=== PATIENT | male | born 1955 | race American Indian/Alaskan Native ===

== ENCOUNTER 2016-09-28 15:45 | Emergency (ER) | payer SELFPAY | END 2016-09-28 15:46 | disposition left against medical advice (07) | LOC: ED 15:45 | DX: M79.671 Pain in right foot (principal); M79.89 Other specified soft tissue disorders; Z53.21 Procedure and treatment not carried out due to patient leaving prior to being seen by health care provider ==

== ENCOUNTER 2016-09-28 22:29 | Emergency (ER) | payer BC ==
[2016-09-28 23:33] VITALS: BP 146/95
[2016-09-29] MEDS ORDERED: TORADOL IM ONE (03:16)
--- NOTE | 2016-09-29 03:20 | Emergency Department Report ---
ED Extremity Problem HPI - General Chief complaint: Extremity Problem,Nontraumatic Stated complaint: GOUT FLAIR UPS Time Seen by Provider: 09/29/16 03:15 Source: patient Mode of arrival: Ambulatory Limitations: No Limitations - History of Present Illness Initial comments: 60-year-old patient with a PMH of hypertension comes in for complaint of his gout is flaring up. Patient reports that his last flareup was about a year ago. Complains of left great toel pain and swelling. He comes in with a surgical boot on. He does admit to eating more red meats but also states he has stayed away from shellfish. He has tried Tylenol and Aleve without much success. His current medications are atenolol lisinopril and nifedipine.. MD Complaint: extremity pain, extremity swelling, joint paint - Related Data Previous Rx's Medication Instructions Recorded Last Taken Type Colchicine 0.6 mg PO BID #10 capsule 09/29/16 Unknown Rx Indomethacin 50 mg PO Q8H #15 capsule 09/29/16 Unknown Rx Allergies Allergy/AdvReac Type Severity Reaction Status Date / Time No Known Allergies Allergy Unverified 09/29/16 03:16 ED Review of Systems ROS: Stated complaint: GOUT FLAIR UPS Other details as noted in HPI Constitutional: no symptoms reported Musculoskeletal: joint swelling, arthralgia ED Past Medical Hx - Medications Home Medications: Home Medications Medication Instructions Recorded Confirmed Last Taken Type Colchicine 0.6 mg PO BID #10 capsule 09/29/16 Unknown Rx Indomethacin 50 mg PO Q8H #15 capsule 09/29/16 Unknown Rx ED Physical Exam - General Limitations: No Limitations General appearance: alert, in no apparent distress - Eye Eye exam: Present: normal appearance - Expanded Lower Extremity Exam Left Foot/Toe exam: Present: tenderness (metatarsal), swelling (metatarsal), erythema (tarsal) Neuro vascular tendon exam: Present: no vascular compromise. Absent: pulse deficit Gait: Positive: observed and limited by pain - Psychiatric Psychiatric exam: Present: normal affect, normal mood - Skin Skin exam: Present: warm, dry, intact ED Course Vital Signs 09/28/16 23:30 Temperature 98.2 F Pulse Rate 81 Respiratory 20 Rate Blood Pressure 146/95 O2 Sat by Pulse 97 Oximetry ED Medical Decision Making - Medical Decision Making Discussed with patient that we will manage his pain with a shot of Toradol. We will discharge the patient on colchicine and indomethacin. Discussed with . Have patient follow up with primary care doctor with in 3-5 days. Critical care attestation.: If time is entered above; I have spent that time in minutes in the direct care of this critically ill patient, excluding procedure time. ED Disposition Clinical Impression: Podagra Disposition: DISCHARGED TO HOME OR SELFCARE Is pt being admited?: No Does the pt Need Aspirin: No Condition: Stable Instructions: Acute Gouty Arthritis (ED) Additional Instructions: Take medication as prescribed follow up with her primary care doctor within 3-5 days. Prescriptions: Colchicine 0.6 mg PO BID #10 capsule Indomethacin 50 mg PO Q8H #15 capsule Referrals: RIRI HERNANDEZ MD [Primary Care Provider] - 3-5 Days Forms: Work/School Release Form(ED)
== END 2016-09-29 04:50 | disposition home or self-care (01) ==
LOC: ED 22:29
DX: M10.9 Gout, unspecified (principal); I10 Essential (primary) hypertension
CPT/HCPCS: 96372; 99282; J1885

== ENCOUNTER 2016-10-17 16:14 | Outpatient (CLI) | payer BC | END 2016-10-17 16:15 | disposition home or self-care (01) | LOC: LAB 16:14 → LABHHL 16:14 → LAB 16:15 | PROVIDERS: ATTEND Internal Medicine Gastroenterology | DX: Z12.11 Encounter for screening for malignant neoplasm of colon (principal) | CPT/HCPCS: 88305 ==

== ENCOUNTER 2017-01-30 20:53 | Emergency (ER) | payer BC ==
[2017-01-31 03:42] VITALS: BP 176/97
--- NOTE | 2017-01-31 04:50 | Emergency Department Report ---
Upper Extremity - HPI Chief Complaint: Extremity Injury, Upper Stated Complaint: RT HAND SWELLING W/PAIN Time Seen by Provider: 01/31/17 04:34 Upper Extremity: Right Hand (pain in right hand with swelling and patient reports got flareup after eating in the food that he is not supposed to be eating over several days.) Occurred When: 1 Day Mechanism: Other (flareup gout) Severity: severe (9 out of 10) Symptoms: Yes Pain with Movement, Yes Swelling, No Deformity, No Limited Range of Movement, No Numbness, No Weakness, No Bruising/Ecchymosis, No Laceration or Abrasion Other History: Parker he reports that he has a flare up of gout 2 days and is very painful he said last time he had this was in September 2016 and he was treated with and indomethacin which worked for him but he said he does not have anymore. Patient psychosis outside [facility] for her memory care visit with Dr. Harris. He says prior to the flare up he's been eating meats and fish that he is not supposed to be eating. She reports that he's had similar severe flareups in same hand and other areas. He said he tried to take over-the -counter medication but it's not helping. Denies any numbness or tingling to extremities. Denies any injury. Denies any fever or chills. Pain is not adequate and achy. Denies any chest pain or shortness of breath. Patient has history of hypertension and gout. He is currently taking lisinopril and Norvasc which he said he takes every day. ED Review of Systems ROS: Stated complaint: RT HAND SWELLING W/PAIN Other details as noted in HPI Comment: All other systems reviewed and negative Constitutional: denies: chills, fever Respiratory: no symptoms reported Cardiovascular: denies: chest pain, palpitations, edema, syncope Gastrointestinal: denies: nausea, vomiting Musculoskeletal: joint swelling, arthralgia. denies: back pain, myalgia Skin: denies: rash Neurological: denies: headache, weakness, numbness, paresthesias, confusion ED Past Medical Hx - Past Medical History Previous Medical History?: Yes Hx Hypertension: Yes Additional medical history: gout - Surgical History Past Surgical History?: No - Family History Family history: hypertension - Social History Smoking Status: Never Smoker Substance Use Type: None - Medications Home Medications: Home Medications Medication Instructions Recorded Confirmed Last Taken Type Colchicine 0.6 mg PO BID #10 capsule 01/31/17 Unknown Rx Indomethacin 50 mg PO Q8H #15 capsule 01/31/17 Unknown Rx Lisinopril [Zestril] 40 mg PO DAILY 01/31/17 01/31/17 1 Day Ago History amLODIPine [Norvasc] 10 mg PO DAILY 01/31/17 01/31/17 1 Day Ago History Upper Extremity Exam - Exam General: Vital signs noted. No distress. Alert and acting appropriately. This is a 61-year-old male well-nourished well-developed in no acute distress. Head and Torso: No HEENT Abnormality (normal exam), No Neck Tenderness (no C- spine tenderness, supple and full range of motion), No Chest/Lungs Abnormality ( lung sounds clear to auscultate bilaterally, no rhonchi wheezes or rales. Normal work of breathing), No Abdominal Tenderness (soft, nontender to palpate and normal bowel sounds in all quadrants), No Back Tenderness (full range of motion and normal exam) Shoulder Exam: Yes Normal Range of Motion in Shoulder, No Shoulder Tenderness, No Clavicle Tenderness, No Shoulder Deformity, No AC Joint Tenderness Arm Exam: No Arm/Humerus Tenderness, No Arm Deformity Elbow: Yes Normal Range of Motion in Elbow, No Elbow Tenderness, No Elbow Deformity Forearm: No Forearm Tenderness, No Forearm Deformity, No Pain with Pronation, No Pain with Supination Wrist: Yes Wrist Tenderness, Yes Normal ROM in Wrist, No Wrist Deformity, No Snuffbox Tenderness, No Pain with Axial Thumb Compression Hand: Yes Hand Tenderness (Dorsal aspect of Rt hand. Tender to palpate with swelling and mild erythema.), Yes Normal ROM in Digit(s), No Hand Deformity, No Digit Tenderness, No Digit(s) Deformity, No Tendon Dysfunction CMS Exam: Yes Normal Distal Pulses, Yes Normal Capillary Refill, Yes Normal Distal Sensation, No Broken Skin ED Course Vital Signs 01/30/17 01/30/17 01/31/17 21:22 21:37 03:41 Temperature 98.5 F 98.5 F Pulse Rate 74 74 74 Respiratory 18 18 20 Rate Blood Pressure 163/89 Blood Pressure 163/89 176/97 [Right] O2 Sat by Pulse 100 100 98 Oximetry - Reevaluation(s) Reevaluation #1: 01/31/17 06:20 Patient given Percocet 5/325 mg 2 tablets by mouth, Toradol 60 mg IM and Decadron 10 mg IM and voice relief of pain. 01/31/17 06:21 ED Medical Decision Making - Radiology Data Radiology results: report reviewed X-ray of right hand reveal soft tissue swelling without any bony abnormality. - Medical Decision Making ED course: She presented to the emergency room with right hand swelling, pain and reports that he has a gout flare up. X-ray results reveal no bony abnormality with soft tissue swelling. Examination of right hand positive for acute gout flare up. Patient has been eating in red meat and fish 2 days prior to flare up. Discussed local appearing diet with patient and he said he knows but every time he eats this he has a flare up. Patient has a primary care physician at this outside [facility] and I told him that he will need to follow-up with him to call to schedule an appointment in 2 days. He was treated back in September with indomethacin and Colcrys she says works well for him. I discussed with patient that his x-ray of his hand did not show any broken bones. Pt discharged home with his friend with prescription for Colcrys and indomethacin. Critical care attestation.: If time is entered above; I have spent that time in minutes in the direct care of this critically ill patient, excluding procedure time. ED Disposition Clinical Impression: Arthralgia of right hand Acute gout of right hand Qualifiers: Gout etiology: unspecified cause Qualified Code(s): M10.9 - Gout, unspecified Disposition: DISCHARGED TO HOME OR SELFCARE Is pt being admited?: No Does the pt Need Aspirin: No Condition: Stable Instructions: Acute Gouty Arthritis (ED), Arthralgia (ED), Low Purine Diet (ED) Additional Instructions: avoid food that is high in purine. Follow-up with your primary care physician at outside Medical Center. Take medication as prescribed. Prescriptions: Colchicine 0.6 mg PO BID #10 capsule Indomethacin 50 mg PO Q8H #15 capsule Referrals: PRIMARY MD MADY [Primary Care Provider] - 02/02/17 Forms: Accompanied Note, Work/School Release Form(ED)
[2017-01-31] MEDS ORDERED: PERCOCET 5/325 PO ONE (04:51)
[2017-01-31] MEDS ORDERED: DECADRON IM STA (04:51)
[2017-01-31] MEDS ORDERED: TORADOL IM ONE (04:51)
--- NOTE | 2017-01-31 05:24 | XRay Report ---
FINAL REPORT EXAM: XR HAND 3 RT HISTORY: rt hand swelling, redness and pain TECHNIQUE: Three views of the right hand. PRIORS: None. FINDINGS: There is no evidence of acute fracture. There is no evidence of joint dislocation. There is no focal osseous lesions seen. There is diffuse soft tissue swelling. IMPRESSION: There is no acute bony abnormality identified. Soft tissue swelling noted.
== END 2017-01-31 06:59 | disposition home or self-care (01) ==
LOC: ED 20:53
DX: M10.9 Gout, unspecified (principal); M79.641 Pain in right hand; I10 Essential (primary) hypertension
CPT/HCPCS: 73130; 96372; 99283; J1100; J1885

== ENCOUNTER 2017-12-18 14:04 | Emergency (ER) | payer BC ==
[2017-12-18 14:09] VITALS: BP 121/83
[2017-12-18] MEDS ORDERED: PERCOCET 5/325 PO ONE (16:45)
[2017-12-18] MEDS ORDERED: COLCRYS PO ONE (16:45)
[2017-12-18] MEDS ORDERED: TORADOL IM ONE (16:45)
--- NOTE | 2017-12-18 16:49 | Emergency Department Report ---
ED Extremity Problem HPI - General Chief complaint: Extremity Injury, Lower Stated complaint: GOUT Time Seen by Provider: 12/18/17 16:44 Source: patient Mode of arrival: Ambulatory Limitations: No Limitations - History of Present Illness Initial comments: 62-year-old male with a past medical history hypertension, gout, and obesity presents complaining of left knee and left foot pain secondary to gout for the past 4 days. Pain is constant, throbbing, rated 10/10 intensity. Worse with palpation, movement, and ambulation. Similar episodes in the past secondary to gout. Pain is at the left knee and left great toe. No trauma reported. No fever reported. - Related Data Home Medications Medication Instructions Recorded Confirmed Last Taken Lisinopril [Zestril] 40 mg PO DAILY 01/31/17 01/31/17 1 Day Ago ~01/30/17 amLODIPine [Norvasc] 10 mg PO DAILY 01/31/17 01/31/17 1 Day Ago ~01/30/17 Previous Rx's Medication Instructions Recorded Last Taken Type Colchicine 0.6 mg PO BID #10 capsule 01/31/17 Unknown Rx Colchicine [Mitigare] 0.6 mg PO BID #2 capsule 12/18/17 Unknown Rx Indomethacin 50 mg PO Q8H #15 capsule 12/18/17 Unknown Rx Oxycodone HCl/Acetaminophen 1 each PO Q4-6H PRN #20 tablet 12/18/17 Unknown Rx [Percocet 7.5/325 mg] Allergies Allergy/AdvReac Type Severity Reaction Status Date / Time No Known Allergies Allergy Unverified 09/29/16 03:16 ED Review of Systems ROS: Stated complaint: GOUT Other details as noted in HPI Comment: All other systems reviewed and negative ED Past Medical Hx - Past Medical History Hx Hypertension: Yes Additional medical history: gout - Social History Smoking Status: Never Smoker Substance Use Type: None - Medications Home Medications: Home Medications Medication Instructions Recorded Confirmed Last Taken Type Colchicine 0.6 mg PO BID #10 capsule 01/31/17 Unknown Rx Lisinopril [Zestril] 40 mg PO DAILY 01/31/17 01/31/17 1 Day Ago History ~01/30/17 amLODIPine [Norvasc] 10 mg PO DAILY 01/31/17 01/31/17 1 Day Ago History ~01/30/17 Colchicine [Mitigare] 0.6 mg PO BID #2 capsule 12/18/17 Unknown Rx Indomethacin 50 mg PO Q8H #15 capsule 12/18/17 Unknown Rx Oxycodone HCl/Acetaminophen 1 each PO Q4-6H PRN #20 tablet 12/18/17 Unknown Rx [Percocet 7.5/325 mg] ED Physical Exam - General Limitations: No Limitations - Other Other exam information: General: No limitations, patient is alert in no acute distress Head exam: Atraumatic, normocephalic Eyes exam: Normal appearance, pupils equal reactive to light, extraocular movements intact ENT: Moist mucous membrane, normal oropharynx Neck exam: Normal inspection, full range of motion, no meningismus nontender Respiratory exam: Clear to auscultation bilateral, no wheezes, rales, crackles Cardiovascular: Normal rate and rhythm, normal heart sounds Abdomen: Soft, nondistended, and nontender, with normal bowel sounds, no rebound, or guarding Extremity: Full range of motion, left knee pain without redness. Tender to palpation. Left great toe erythema at the MTP joint with tendernessand warmth Back: Normal Inspection, full range of motion, no tenderness Neurologic: Alert, oriented x3, cranial nerves intact, no motor or sensory deficit Psychiatric: normal affect, normal mood Skin: Warm, dry, intact ED Course Vital Signs 12/18/17 14:07 Temperature 97.5 F L Pulse Rate 71 Respiratory 18 Rate Blood Pressure 121/83 O2 Sat by Pulse 99 Oximetry ED Medical Decision Making - Medical Decision Making Patient had acute exacerbation of gout arthritis. Given colchicine, Toradol, and Percocet in the ED We will be prescribing him medicines for treatment Patient are using crutches and has a cast shoe to his left foot secondary to swelling and pain - Differential Diagnosis gout, arthritis, septic joint Critical Care Time: No Critical care attestation.: If time is entered above; I have spent that time in minutes in the direct care of this critically ill patient, excluding procedure time. ED Disposition Clinical Impression: Gout attack Qualifiers: Gout site: multiple sites Encounter type: initial encounter Disposition: TO HOME OR SELFCARE Is pt being admited?: No Does the pt Need Aspirin: No Condition: Stable Instructions: Acute Gouty Arthritis (ED) Additional Instructions: Take medications as prescribed. Follow-up with your doctor for prescription for gout suppressive medication and follow up evaluation regarding this attack. Prescriptions: Colchicine [Mitigare] 0.6 mg PO BID #2 capsule Indomethacin 50 mg PO Q8H #15 capsule Oxycodone HCl/Acetaminophen [Percocet 7.5/325 mg] 1 each PO Q4-6H PRN #20 tablet PRN Reason: Pain Referrals: PRIMARY CARE, [Primary Care Provider] - 3-5 Days NICKY LUIS MD [Staff Physician] - 3-5 Days (Primary care doctor ) Time of Disposition: 16:54
== END 2017-12-18 17:05 | disposition home or self-care (01) ==
LOC: ED 14:04
DX: M10.9 Gout, unspecified (principal); I10 Essential (primary) hypertension
CPT/HCPCS: 96372; 99282; J1885

== ENCOUNTER 2018-11-24 16:55 | Emergency (ER) | payer BC ==
[2018-11-24 17:01] VITALS: BP 141/69
--- NOTE | 2018-11-24 17:07 | Emergency Department Report ---
Chief Complaint: Extremity Injury, Upper Stated Complaint: GOUT Time Seen by Provider: 11/24/18 17:03 - HPI History of Present Illness: pt states he presents for gout flare right wrist swelling and pain hx of gout no fever no injury states he take medications for gout VSS swelling and warmth to right arm good radial pulse - Exam Vital Signs: Vital Signs 11/24/18 17:00 Temperature 98.7 F Pulse Rate 61 Respiratory 20 Rate Blood Pressure 141/69 [Left] O2 Sat by Pulse 98 Oximetry MSE screening note: Focused history and physical exam performed. ED Disposition for MSE Condition: Stable
[2018-11-24] MEDS ORDERED: DECADRON IM ONE (19:26)
[2018-11-24] MEDS ORDERED: TORADOL IM ONE (19:26)
--- NOTE | 2018-11-24 20:22 | Emergency Department Report ---
ED Upper Extremity Inj HPI - General Chief Complaint: Extremity Injury, Upper Stated Complaint: GOUT Time Seen by Provider: 11/24/18 17:03 Source: patient Mode of arrival: Ambulatory Limitations: No Limitations - History of Present Illness Initial Comments: patient is a 62 -year-old -Cymraes history presents for gout flare right wrist for past 3 days pain described as 5/10 aching exacerbated by movement there is no numbness no tingling now weakness no paralysis pain exacerbated by movement pain relieved by nothting. Complaint: Injury to:: left, wrist (wrists) Onset/Timin -: days(s) Other Extremity Injury: Wrist: Right Other Injuries: none Place: home Severity scale (0 -10): 5 Improves With: none Worsens With: movement of extremity - Related Data Home Medications Medication Instructions Recorded Confirmed Last Taken Lisinopril [Zestril] 40 mg PO DAILY 01/31/17 01/31/17 1 Day Ago ~01/30/17 amLODIPine [Norvasc] 10 mg PO DAILY 01/31/17 01/31/17 1 Day Ago ~01/30/17 Previous Rx's Medication Instructions Recorded Last Taken Type Colchicine 0.6 mg PO BID #10 capsule 01/31/17 Unknown Rx Colchicine [Mitigare] 0.6 mg PO BID #2 capsule 12/18/17 Unknown Rx Indomethacin 50 mg PO Q8H #15 capsule 12/18/17 Unknown Rx Oxycodone HCl/Acetaminophen 1 each PO Q4-6H PRN #20 tablet 12/18/17 Unknown Rx [Percocet 7.5/325 mg] Indomethacin 50 mg PO Q8H PRN 10 Days #30 11/24/18 Unknown Rx capsule predniSONE [Deltasone] 40 mg PO QDAY 5 Days #10 tab 11/24/18 Unknown Rx Allergies Allergy/AdvReac Type Severity Reaction Status Date / Time No Known Allergies Allergy Verified 11/24/18 16:56 ED Review of Systems ROS: Stated complaint: GOUT Other details as noted in HPI Constitutional: denies: chills, fever Eyes: denies: eye pain, eye discharge, vision change ENT: denies: ear pain, throat pain Respiratory: denies: cough, shortness of breath, wheezing Cardiovascular: denies: chest pain, palpitations Endocrine: no symptoms reported Gastrointestinal: denies: abdominal pain, nausea, diarrhea Genitourinary: denies: urgency, dysuria Musculoskeletal: denies: back pain, joint swelling, arthralgia Skin: denies: rash, lesions Neurological: denies: headache, weakness, paresthesias Psychiatric: denies: anxiety, depression Hematological/Lymphatic: denies: easy bleeding, easy bruising ED Past Medical Hx - Past Medical History Hx Hypertension: Yes Additional medical history: gout - Surgical History Past Surgical History?: No - Social History Smoking Status: Never Smoker Substance Use Type: Prescribed - Medications Home Medications: Home Medications Medication Instructions Recorded Confirmed Last Taken Type Colchicine 0.6 mg PO BID #10 capsule 01/31/17 Unknown Rx Lisinopril [Zestril] 40 mg PO DAILY 01/31/17 01/31/17 1 Day Ago History ~01/30/17 amLODIPine [Norvasc] 10 mg PO DAILY 01/31/17 01/31/17 1 Day Ago History ~01/30/17 Colchicine [Mitigare] 0.6 mg PO BID #2 capsule 12/18/17 Unknown Rx Indomethacin 50 mg PO Q8H #15 capsule 12/18/17 Unknown Rx Oxycodone HCl/Acetaminophen 1 each PO Q4-6H PRN #20 tablet 12/18/17 Unknown Rx [Percocet 7.5/325 mg] Indomethacin 50 mg PO Q8H PRN 10 Days #30 11/24/18 Unknown Rx capsule predniSONE [Deltasone] 40 mg PO QDAY 5 Days #10 tab 11/24/18 Unknown Rx ED Physical Exam - General Limitations: No Limitations General appearance: alert, in no apparent distress - Head Head exam: Present: atraumatic, normocephalic - Eye Eye exam: Present: normal appearance, PERRL, EOMI Pupils: Present: normal accommodation - ENT ENT exam: Present: mucous membranes moist - Neck Neck exam: Present: normal inspection, full ROM - Respiratory Respiratory exam: Present: normal lung sounds bilaterally. Absent: respiratory distress - Cardiovascular Cardiovascular Exam: Present: regular rate, normal rhythm. Absent: systolic murmur, diastolic murmur, rubs, gallop - GI/Abdominal GI/Abdominal exam: Present: soft, normal bowel sounds - Rectal Rectal exam: Present: deferred - exam: Present: normal inspection - Extremities Exam Extremities exam: Present: normal inspection, tenderness (right wrist mild swelling no deformity no erythema ), normal capillary refill, joint swelling. Absent: pedal edema, calf tenderness - Expanded Upper Extremity Exam Right Hand Wrist exam: Present: full ROM, swelling. Absent: tenderness, abrasion, laceration, ecchymosis, deformity, crepidus, dislocation, erythema, amputation, nail avulsion, subungual hematoma Neuro motor exam: Present: wrist extension intact, thumb opposition intact, thumb IP flexion intact, thumb adduction intact, fingers 2-5 abduction intact Neurosensory exam: Present: 2-point discrimination, radial nerve intact, ulnar nerve intact, median nerve intact Vascular: Present: normal capillary refill, radial pulse, brachial pulse, ulnar pulse. Absent: vascular compromise, pulse deficit radial art, pulse deficit ulnar art, pulse deficit brachial art - Back Exam Back exam: Present: normal inspection, full ROM, muscle spasm. Absent: tenderness, CVA tenderness (R), CVA tenderness (L), paraspinal tenderness, vertebral tenderness, rash noted - Neurological Exam Neurological exam: Present: alert, oriented X3, CN II-XII intact, normal gait, reflexes normal - Psychiatric Psychiatric exam: Present: normal affect, normal mood - Skin Skin exam: Present: warm, dry, intact, normal color. Absent: rash ED Course Vital Signs 11/24/18 11/24/18 11/24/18 17:00 17:03 19:46 Temperature 98.7 F 98.7 F Pulse Rate 61 61 Respiratory 20 20 18 Rate Blood Pressure 141/69 Blood Pressure 141/69 [Left] O2 Sat by Pulse 98 98 Oximetry ED Medical Decision Making - Medical Decision Making pain improved with medications given in ed plan indomethacin, prednisone, follow up with pcp in 2-3 days hold allopurinol while taking inodmethacine pt verbalized agreement and understanding of discharge plan. Critical care attestation.: If time is entered above; I have spent that time in minutes in the direct care of this critically ill patient, excluding procedure time. ED Disposition Clinical Impression: Exacerbation of gout Disposition: TO HOME OR SELFCARE Is pt being admited?: No Does the pt Need Aspirin: No Condition: Stable Instructions: Acute Gouty Arthritis (ED) Prescriptions: predniSONE [Deltasone] 40 mg PO QDAY 5 Days #10 tab Indomethacin 50 mg PO Q8H PRN 10 Days #30 capsule PRN Reason: pain Referrals: PRIMARY CARE, [Primary Care Provider] - 3-5 Days PETEY SWIFT MD [Referring] - 3-5 Days Forms: Work/School Release Form(ED) Time of Disposition: 20:28
== END 2018-11-24 20:43 | disposition home or self-care (01) ==
LOC: ED 16:55
DX: M10.9 Gout, unspecified (principal)
CPT/HCPCS: 36415; 84550; 96372; 99283; J1100; J1885

== ENCOUNTER 2020-09-06 16:18 | Emergency (ER) | payer BC, MEDICARE ==
[2020-09-06] MEDS ORDERED: dexAMETHasone 20 MG/5 ML VIAL IM ONE (17:44)
[2020-09-06] MEDS ORDERED: COLCHICINE 0.6 MG CAP PO ONE (17:44)
[2020-09-06] MEDS ORDERED: KETOROLAC 30 MG/1 ML INJ IM ONE (17:44)
--- NOTE | 2020-09-06 17:46 | Emergency Department Report ---
ED Extremity Problem HPI - General Chief complaint: Pain General Stated complaint: RT HAND SWOLLEN Time Seen by Provider: 09/06/20 17:42 Source: patient Mode of arrival: Ambulatory Limitations: No Limitations - History of Present Illness Initial comments: 64-year-old -[place]ux[place]bour[place] male presents to the emergency room for right hand swelling. Patient states that his gout flaring up. Patient states is been going on for about 3 days. Patient does admit to eating something that he should not have. Patient states that the pain is unbearable and he has been sleeping with it up to try to get any relief. MD Complaint: extremity pain, extremity swelling, joint swelling, joint paint Onset/Timin -: days(s) Location: right History of Same: Yes -: Yes arthralgia Severity scale (0 -10): 10 Quality: stabbing, aching, sharp Consistency: constant Improves with: nothing Worsens with: palpation Associated Symptoms: denies: denies other symptoms, fever - Related Data Home Medications Medication Instructions Recorded Confirmed Last Taken Lisinopril [Zestril] 40 mg PO DAILY 01/31/17 01/31/17 1 Day Ago ~01/30/17 amLODIPine [Norvasc] 10 mg PO DAILY 01/31/17 01/31/17 1 Day Ago ~01/30/17 Previous Rx's Medication Instructions Recorded Last Taken Type Colchicine [Mitigare] 0.6 mg PO BID #2 capsule 12/18/17 Unknown Rx Indomethacin 50 mg PO Q8H #15 capsule 12/18/17 Unknown Rx Oxycodone HCl/Acetaminophen 1 each PO Q4-6H PRN #20 tablet 12/18/17 Unknown Rx [Percocet 7.5/325 mg] Colchicine 0.6 mg PO BID #10 capsule 09/06/20 Unknown Rx Indomethacin 50 mg PO Q8H PRN 10 Days #30 09/06/20 Unknown Rx capsule predniSONE [Deltasone] 40 mg PO QDAY 5 Days #10 tab 09/06/20 Unknown Rx Allergies Allergy/AdvReac Type Severity Reaction Status Date / Time No Known Allergies Allergy Verified 11/24/18 16:56 ED Review of Systems ROS: Stated complaint: RT HAND SWOLLEN Other details as noted in HPI Comment: All other systems reviewed and negative ED Past Medical Hx - Past Medical History Hx Hypertension: Yes Additional medical history: gout - Social History Smoking Status: Never Smoker Substance Use Type: Prescribed - Medications Home Medications: Home Medications Medication Instructions Recorded Confirmed Last Taken Type Lisinopril [Zestril] 40 mg PO DAILY 01/31/17 01/31/17 1 Day Ago History ~01/30/17 amLODIPine [Norvasc] 10 mg PO DAILY 01/31/17 01/31/17 1 Day Ago History ~01/30/17 Colchicine [Mitigare] 0.6 mg PO BID #2 capsule 12/18/17 Unknown Rx Indomethacin 50 mg PO Q8H #15 capsule 12/18/17 Unknown Rx Oxycodone HCl/Acetaminophen 1 each PO Q4-6H PRN #20 tablet 12/18/17 Unknown Rx [Percocet 7.5/325 mg] Colchicine 0.6 mg PO BID #10 capsule 09/06/20 Unknown Rx Indomethacin 50 mg PO Q8H PRN 10 Days #30 09/06/20 Unknown Rx capsule predniSONE [Deltasone] 40 mg PO QDAY 5 Days #10 tab 09/06/20 Unknown Rx ED Physical Exam - General Limitations: No Limitations General appearance: alert, in distress - Head Head exam: Present: atraumatic, normocephalic - Eye Eye exam: Present: normal appearance - ENT ENT exam: Present: normal exam - Neck Neck exam: Present: normal inspection. Absent: full ROM - Respiratory Respiratory exam: Absent: accessory muscle use - Expanded Upper Extremity Exam Right Shoulder Exam: Present: normal inspection Upper Arm exam: Present: normal inspection Elbow exam: Present: normal inspection Forearm Wrist exam: Present: normal inspection Hand Wrist exam: Present: full ROM, tenderness, swelling, erythema Vascular: Present: normal capillary refill - Back Exam Back exam: Present: normal inspection - Neurological Exam Neurological exam: Present: alert, oriented X3, normal gait - Psychiatric Psychiatric exam: Present: normal affect, normal mood ED Course Vital Signs 09/06/20 16:55 Temperature 97.6 F Pulse Rate 76 Respiratory 20 Rate Blood Pressure 150/74 O2 Sat by Pulse 100 Oximetry ED Medical Decision Making - Medical Decision Making 64-year-old -[place]ux[place] male presents to the emergency room for right hand swelling. Patient states that his gout flaring up. Patient states is been going on for about 3 days. Patient does admit to eating something that he should not have. Patient states that the pain is unbearable and he has been sleeping with it up to try to get any relief. Toradol 30 mg IM, colchicine 1.2 mg and dexamethasone 10 mg IM. Critical care attestation.: If time is entered above; I have spent that time in minutes in the direct care of this critically ill patient, excluding procedure time. ED Disposition Clinical Impression: Gout attack Disposition: TO HOME OR SELFCARE Is pt being admited?: No Does the pt Need Aspirin: No Condition: Stable Additional Instructions: Please take medications as prescribed. Please avoid eating foods that exacerbate your gout. Increase your water intake. Prescriptions: Colchicine 0.6 mg PO BID #10 capsule predniSONE [Deltasone] 40 mg PO QDAY 5 Days #10 tab Indomethacin 50 mg PO Q8H PRN 10 Days #30 capsule PRN Reason: pain Referrals: [facility] [Provider Group] - 3-5 Days
[2020-09-06 20:26] VITALS: BP 147/72
== END 2020-09-06 20:25 | disposition home or self-care (01) ==
LOC: ED 16:18
DX: M10.9 Gout, unspecified (principal); I10 Essential (primary) hypertension; Z79.899 Other long term (current) drug therapy
CPT/HCPCS: 96372; 99282; J1100; J1885

== ENCOUNTER 2020-12-09 13:53 | Emergency (ER) | payer BC, MEDICARE ==
[2020-12-09 14:32] VITALS: BP 164/76
[2020-12-09] MEDS ORDERED: KETOROLAC 60 MG/2 ML INJ IM ONE (16:28)
[2020-12-09] MEDS ORDERED: dexAMETHasone 20 MG/5 ML VIAL IM ONE (16:28)
--- NOTE | 2020-12-09 17:13 | Emergency Department Report ---
ED General Adult HPI - General Chief complaint: Extremity Problem,Nontraumatic Stated complaint: GOUT Time Seen by Provider: 12/09/20 15:09 Source: patient Mode of arrival: Ambulatory Limitations: No Limitations - History of Present Illness Initial comments: 65-year-old -[place]ian male patient presents with complaints of gout flare to right wrist x 1 day. Patient states history of gout flares to the right wrist and that this feels like his past episodes. He states he is currently on allopurinol. He denies any fever/chills/sweats or injuries to his right wrist. He rates his current pain as a 9/10 in severity. -: Sudden - Related Data Home Medications Medication Instructions Recorded Confirmed Last Taken Lisinopril [Zestril] 40 mg PO DAILY 01/31/17 01/31/17 1 Day Ago ~01/30/17 amLODIPine [Norvasc] 10 mg PO DAILY 01/31/17 01/31/17 1 Day Ago ~01/30/17 Previous Rx's Medication Instructions Recorded Last Taken Type Colchicine [Mitigare] 0.6 mg PO BID #2 capsule 12/18/17 Unknown Rx Oxycodone HCl/Acetaminophen 1 each PO Q4-6H PRN #20 tablet 12/18/17 Unknown Rx [Percocet 7.5/325 mg] Colchicine 0.6 mg PO BID #10 capsule 09/06/20 Unknown Rx Indomethacin 50 mg PO Q8H PRN 10 Days #30 09/06/20 Unknown Rx capsule predniSONE [Deltasone] 40 mg PO QDAY 5 Days #10 tab 09/06/20 Unknown Rx Indomethacin 50 mg PO Q8H PRN #15 capsule 12/09/20 Unknown Rx Prednisone [predniSONE 10 mg 10 mg PO .TAPER #1 tab.ds.pk 12/09/20 Unknown Rx (6-Day Pack, 21 Tabs)] Allergies Allergy/AdvReac Type Severity Reaction Status Date / Time No Known Allergies Allergy Verified 11/24/18 16:56 ED Review of Systems ROS: Stated complaint: GOUT Other details as noted in HPI Constitutional: denies: chills, fever, malaise Cardiovascular: denies: chest pain Musculoskeletal: joint swelling, arthralgia Neurological: denies: numbness, paresthesias ED Past Medical Hx - Past Medical History Previous Medical History?: Yes Hx Hypertension: Yes Additional medical history: gout - Surgical History Past Surgical History?: No - Social History Smoking Status: Never Smoker Substance Use Type: Prescribed - Medications Home Medications: Home Medications Medication Instructions Recorded Confirmed Last Taken Type Lisinopril [Zestril] 40 mg PO DAILY 01/31/17 01/31/17 1 Day Ago History ~01/30/17 amLODIPine [Norvasc] 10 mg PO DAILY 01/31/17 01/31/17 1 Day Ago History ~01/30/17 Colchicine [Mitigare] 0.6 mg PO BID #2 capsule 12/18/17 Unknown Rx Oxycodone HCl/Acetaminophen 1 each PO Q4-6H PRN #20 tablet 12/18/17 Unknown Rx [Percocet 7.5/325 mg] Colchicine 0.6 mg PO BID #10 capsule 09/06/20 Unknown Rx Indomethacin 50 mg PO Q8H PRN 10 Days #30 09/06/20 Unknown Rx capsule predniSONE [Deltasone] 40 mg PO QDAY 5 Days #10 tab 09/06/20 Unknown Rx Indomethacin 50 mg PO Q8H PRN #15 capsule 12/09/20 Unknown Rx Prednisone [predniSONE 10 mg 10 mg PO .TAPER #1 tab.ds.pk 12/09/20 Unknown Rx (6-Day Pack, 21 Tabs)] ED Physical Exam - General Limitations: No Limitations General appearance: alert, in no apparent distress, obese - Head Head exam: Present: atraumatic, normocephalic - Eye Eye exam: Present: normal appearance. Absent: scleral icterus - Neck Neck exam: Present: normal inspection - Respiratory Respiratory exam: Absent: respiratory distress - Cardiovascular Cardiovascular Exam: Present: regular rate - Expanded Upper Extremity Exam Right Forearm Wrist exam: Present: full ROM (Limited secondary to pain and swelling), tenderness, swelling. Absent: ecchymosis, deformity, erythema Hand Wrist exam: Present: full ROM. Absent: tenderness, swelling Vascular: Present: normal capillary refill. Absent: vascular compromise, pulse deficit radial art, pulse deficit ulnar art - Neurological Exam Neurological exam: Present: alert, oriented X3, normal gait - Psychiatric Psychiatric exam: Present: normal affect, normal mood - Skin Skin exam: Present: warm, dry, intact, normal color. Absent: rash ED Course Vital Signs 12/09/20 14:28 Temperature 98.0 F Pulse Rate 66 Respiratory 18 Rate Blood Pressure 164/76 [Right] O2 Sat by Pulse 98 Oximetry ED Medical Decision Making - Medical Decision Making 65-year-old -[place] male patient presents with complaints of gout flare to right wrist x 1 day. Patient states history of gout flares to the right wrist and that this feels like his past episodes. He states he is currently on allopurinol. He denies any fever/chills/sweats or injuries to his right wrist. He rates his current pain as a 9/10 in severity. Patient denies any kidney disease or diabetes. Patient given Toradol and Decadron and will discharge home with indomethacin and prednisone. Recommend follow-up with primary care in 3 to 5 days. His vitals are within normal limi ts, he is well-appearing, he is stable for discharge home. Strict return precautions were discussed in detail with patient who verbalized understanding. Critical care attestation.: If time is entered above; I have spent that time in minutes in the direct care of this critically ill patient, excluding procedure time. ED Disposition Clinical Impression: Gout flare Qualifiers: Gout site: wrist Gout etiology: idiopathic Laterality: right Qualified Code(s): M10.031 - Idiopathic gout, right wrist Disposition: DC-01 TO HOME OR SELFCARE Is pt being admited?: No Condition: Stable Instructions: Low-Purine Eating Plan Prescriptions: Indomethacin 50 mg PO Q8H PRN #15 capsule PRN Reason: pain Prednisone [predniSONE 10 mg (6-Day Pack, 21 Tabs)] 10 mg PO .TAPER #1 tab.ds.pk Referrals: PRIMARY CARE, [Primary Care Provider] - 3-5 Days Forms: Work/School Release Form(ED)
== END 2020-12-09 17:59 | disposition home or self-care (01) ==
LOC: ED 13:53
DX: M10.9 Gout, unspecified (principal); I10 Essential (primary) hypertension; Z79.899 Other long term (current) drug therapy
CPT/HCPCS: 96372; 99281; J1100; J1885

== ENCOUNTER 2020-12-28 18:47 | Emergency (ER) | payer BC, MEDICARE ==
--- NOTE | 2020-12-28 22:22 | Emergency Department Report ---
ED Extremity Problem HPI - General Chief complaint: Extremity Injury, Lower Stated complaint: GOUT FOOT/HAND Source: patient Mode of arrival: Ambulatory Limitations: No Limitations - History of Present Illness Initial comments: Patient is a 65-year-old -Pakistani male with a history of morbid obesity, hypertension and chronic gouty arthropathy as well as chronic osteoarthritis who presents to the ED with complaint of acute exacerbation of his chronic gouty arthropathy characterized by bilateral wrist and hand pain and left foot pain for the last 1 week, worse in the last 2 days. Patient states that he does not have any medications at home to take for gout after he ran out of his medications about a month ago when he had a similar flare. Patient denies traumatic injury, chest pain, shortness of breath, fever, chills, cough, nausea and vomiting, numbness and tingling or weakness of upper and lower extremities bilaterally, back pain, abdominal pain, dizziness or palpitations. MD Complaint: extremity pain (bilateral wrist, hand and left foot pain), extremity swelling (bilateral wrist and hands; left foot), joint swelling, joint paint, other (chronic gouty arthropathy) -: Sudden, days(s) (3) Location: upper extremity (bilateral hand and wrist), lower extremity (left foot) History of Same: Yes (chronic gouty arthropathy) -: Yes arthralgia, No fever, No associated dyspnea, No associated chest pain Radiation: distal Severity scale (0 -10): 9 Quality: aching, sharp Consistency: constant Improves with: nothing Worsens with: weight bearing, walking, palpation Associated Symptoms: denies other symptoms, arthralgias (left foot; bilateral hands and wrist). denies: chest pain, shortness of breath, fever, myalgias, rash, other - Related Data Home Medications Medication Instructions Recorded Confirmed Last Taken Lisinopril [Zestril] 40 mg PO DAILY 01/31/17 01/31/17 1 Day Ago ~01/30/17 amLODIPine [Norvasc] 10 mg PO DAILY 01/31/17 01/31/17 1 Day Ago ~01/30/17 Previous Rx's Medication Instructions Recorded Last Taken Type Colchicine [Mitigare] 0.6 mg PO BID #2 capsule 12/18/17 Unknown Rx Oxycodone HCl/Acetaminophen 1 each PO Q4-6H PRN #20 tablet 12/18/17 Unknown Rx [Percocet 7.5/325 mg] Indomethacin 50 mg PO Q8H PRN 10 Days #30 09/06/20 Unknown Rx capsule Prednisone [predniSONE 10 mg 10 mg PO .TAPER #1 tab.ds.pk 12/09/20 Unknown Rx (6-Day Pack, 21 Tabs)] Colchicine 0.6 mg PO BID #30 capsule 12/28/20 Unknown Rx Indomethacin 50 mg PO Q8H PRN #60 capsule 12/28/20 Unknown Rx predniSONE [Deltasone] 60 mg PO QDAY 5 Days #15 tab 12/28/20 Unknown Rx traMADoL [Ultram] 50 mg PO Q6HR PRN #12 tablet 12/28/20 Unknown Rx Allergies Allergy/AdvReac Type Severity Reaction Status Date / Time No Known Allergies Allergy Verified 11/24/18 16:56 ED Review of Systems ROS: Stated complaint: GOUT FOOT/HAND Other details as noted in HPI Constitutional: denies: chills, fever Eyes: denies: eye pain, eye discharge, vision change ENT: denies: ear pain, throat pain Respiratory: denies: cough, shortness of breath, wheezing Cardiovascular: denies: chest pain, palpitations Endocrine: no symptoms reported Gastrointestinal: denies: abdominal pain, nausea, diarrhea Genitourinary: denies: urgency, dysuria Musculoskeletal: joint swelling, arthralgia (Bilateral hand and wrist pain; left foot pain and swelling). denies: back pain Skin: denies: rash, lesions Neurological: denies: headache, weakness, paresthesias Psychiatric: denies: anxiety, depression Hematological/Lymphatic: denies: easy bleeding, easy bruising ED Past Medical Hx - Past Medical History Hx Hypertension: Yes Additional medical history: gout - Social History Smoking Status: Never Smoker Substance Use Type: Prescribed - Medications Home Medications: Home Medications Medication Instructions Recorded Confirmed Last Taken Type Lisinopril [Zestril] 40 mg PO DAILY 01/31/17 01/31/17 1 Day Ago History ~01/30/17 amLODIPine [Norvasc] 10 mg PO DAILY 01/31/17 01/31/17 1 Day Ago History ~01/30/17 Colchicine [Mitigare] 0.6 mg PO BID #2 capsule 12/18/17 Unknown Rx Oxycodone HCl/Acetaminophen 1 each PO Q4-6H PRN #20 tablet 12/18/17 Unknown Rx [Percocet 7.5/325 mg] Indomethacin 50 mg PO Q8H PRN 10 Days #30 09/06/20 Unknown Rx capsule Prednisone [predniSONE 10 mg 10 mg PO .TAPER #1 tab.ds.pk 12/09/20 Unknown Rx (6-Day Pack, 21 Tabs)] Colchicine 0.6 mg PO BID #30 capsule 12/28/20 Unknown Rx Indomethacin 50 mg PO Q8H PRN #60 capsule 12/28/20 Unknown Rx predniSONE [Deltasone] 60 mg PO QDAY 5 Days #15 tab 12/28/20 Unknown Rx traMADoL [Ultram] 50 mg PO Q6HR PRN #12 tablet 12/28/20 Unknown Rx ED Physical Exam - General Limitations: No Limitations General appearance: alert, in no apparent distress - Head Head exam: Present: atraumatic, normocephalic, normal inspection - Eye Eye exam: Present: normal appearance, PERRL, EOMI Pupils: Present: normal accommodation - ENT ENT exam: Present: normal exam, normal orophraynx, mucous membranes moist, TM's normal bilaterally, normal external ear exam - Neck Neck exam: Present: normal inspection, full ROM - Respiratory Respiratory exam: Present: normal lung sounds bilaterally. Absent: respiratory distress, wheezes, rales, stridor, chest wall tenderness, accessory muscle use, decreased breath sounds - Cardiovascular Cardiovascular Exam: Present: regular rate, normal rhythm, normal heart sounds. Absent: systolic murmur, diastolic murmur, rubs, gallop - GI/Abdominal GI/Abdominal exam: Present: soft, normal bowel sounds. Absent: tenderness, guarding, hyperactive bowel sounds - Extremities Exam Extremities exam: Present: normal inspection, full ROM, tenderness (Palpable bilateral wrist and hand tenderness; palpable left foot tenderness and mild swelling), normal capillary refill, joint swelling. Absent: calf tenderness - Back Exam Back exam: Present: normal inspection, full ROM. Absent: tenderness, CVA tenderness (L), muscle spasm, paraspinal tenderness, vertebral tenderness - Neurological Exam Neurological exam: Present: alert, oriented X3, CN II-XII intact, normal gait, reflexes normal - Psychiatric Psychiatric exam: Present: normal affect, normal mood - Skin Skin exam: Present: warm, dry, intact, normal color. Absent: rash ED Course Vital Signs 12/28/20 12/28/20 12/28/20 21:24 21:26 22:40 Temperature 98.4 F 97.6 F Pulse Rate 73 75 Respiratory 18 18 Rate Blood Pressure 185/89 163/81 [Right] O2 Sat by Pulse 99 99 Oximetry 12/28/20 12/28/20 12/28/20 22:49 22:50 23:00 Temperature Pulse Rate Respiratory 18 18 18 Rate Blood Pressure [Right] O2 Sat by Pulse Oximetry ED Medical Decision Making - Medical Decision Making This is a 65-year-old -[place] male with a history of morbid obesity, hypertension and chronic gouty arthropathy as well as chronic osteoarthritis who presents to the ED with complaint of acute exacerbation of his chronic gouty arthropathy characterized by bilateral wrist and hand pain and left foot pain for the last 1 week, worse in the last 2 days. Patient states that he does not have any medications at home to take for gout after he ran out of his medications about a month ago when he had a similar flare. In the ED, patient is alert and oriented x3 and is not in any distress but appears to be in significant pain. Patient was treated for pain in the ED and on reevaluation, patient's pain is well controlled medications. Based on the history and physical exam findings, the patient symptoms are likely due to acute gouty arthropathy flare as well as chronic osteoarthritis. Patient was therefore discharged home on pain medications and advised to follow-up with his primary care physician in 5 to 7 days for reevaluation. Patient was advised return to the ED immediately if symptoms get worse. - Differential Diagnosis Gout; osteoarthritis; chronic pain; muscle strain Critical care attestation.: If time is entered above; I have spent that time in minutes in the direct care of this critically ill patient, excluding procedure time. ED Disposition Clinical Impression: Chronic gouty arthropathy, Chronic osteoarthritis, Chronic pain disorder Disposition: -01 TO HOME OR SELFCARE Is pt being admited?: No Does the pt Need Aspirin: No Condition: Stable Instructions: Low-Purine Eating Plan, Arthritis, [id number], Uric Acid Nephropathy, Chronic Pain, Adult Additional Instructions: Take medication with food, drink plenty of fluids and follow-up with your primary care physician as previously scheduled in 3 days. Return to ED immediately if symptoms get worse. Prescriptions: Colchicine 0.6 mg PO BID #30 capsule predniSONE [Deltasone] 60 mg PO QDAY 5 Days #15 tab Indomethacin 50 mg PO Q8H PRN #60 capsule PRN Reason: pain traMADoL [Ultram] 50 mg PO Q6HR PRN #12 tablet PRN Reason: Pain Referrals: RIRI HERNANDEZ MD [Staff Physician] - 3-5 Days Forms: Work/School Release Form(ED) Time of Disposition: 22:20 Print Language: MALAY
[2020-12-28] MEDS ORDERED: ONDANSETRON 4 MG ODT TAB PO ONE (22:23)
[2020-12-28] MEDS ORDERED: predniSONE 20 MG TAB PO ONE (22:23)
[2020-12-28] MEDS ORDERED: oxyCODONE /ACETAMINOPHEN 5-325MG TAB PO ONE (22:23)
[2020-12-28] MEDS ORDERED: IBUPROFEN 600 MG TAB PO ONE (22:42)
[2020-12-28] MEDS ORDERED: INDOMETHACIN 25 MG CAP PO ONE (22:43)
[2020-12-28] MEDS ORDERED: COLCHICINE 0.6 MG TAB PO ONE (22:43)
[2020-12-28 22:44] VITALS: BP 163/81
== END 2020-12-28 23:00 | disposition home or self-care (01) ==
LOC: ED 18:47
DX: M1A.9XX0 Chronic gout, unspecified, without tophus (tophi) (principal); I10 Essential (primary) hypertension; Z79.899 Other long term (current) drug therapy
CPT/HCPCS: 99282; J7512; Q0162

== ENCOUNTER 2021-09-17 16:11 | Emergency (ER) | payer BC, OTHER ==
--- NOTE | 2021-09-17 19:38 | Emergency Department Report ---
ED Extremity Problem HPI - General Chief complaint: Extremity Injury, Lower Stated complaint: GOUT Time Seen by Provider: 09/17/21 19:29 Source: patient Mode of arrival: Ambulatory Limitations: No Limitations - History of Present Illness Initial comments: 65-year-old male with a past medical history of gout and hypertension presents to the ER today with complaints of bilateral foot and ankle pain. Patient states that symptoms started 2 weeks ago. He states initially was the left foot, that it seemed to have migrated to his right foot and now ankles and feels like it is going into his knees. Patient feels like his pain is related to a gout flare. He states that he does take colchicine for his gout but he has been out for a few days and finally got a prescription refill on September 10, 2021 from his PCP. Patient states that he has noticed improvement of the swelling and the redness since starting the colchicine but he still continues to have pain in those joints. He states that he is having pain when he stands up and walks. He states that he is also been noticing some recent abdominal cramping and nausea but he does admit that because of the pain he had been taking 2 colchicine twice a day instead of 1. He denies any diarrhea or vomiting. He denies any chest pain, shortness of breath, fever, chills, UTI symptoms or any additional symptoms at this time. MD Complaint: joint swelling, joint paint -: week(s) (2) - Related Data Home Medications Medication Instructions Recorded Confirmed Last Taken Lisinopril [Zestril] 40 mg PO DAILY 01/31/17 01/31/17 1 Day Ago ~01/30/17 amLODIPine [Norvasc] 10 mg PO DAILY 01/31/17 01/31/17 1 Day Ago ~01/30/17 Previous Rx's Medication Instructions Recorded Last Taken Type Colchicine 0.6 mg PO BID #30 capsule 12/28/20 Unknown Rx Acetaminophen/Codeine [Tylenol 1 tab PO Q6H PRN #12 tab 09/17/21 Unknown Rx /Codeine # 3 tab] methylPREDNISolone [Medrol 4MG 4 mg PO DAILY #1 09/17/21 Unknown Rx DOSEPAK (21 tabs)] Allergies Allergy/AdvReac Type Severity Reaction Status Date / Time No Known Allergies Allergy Verified 11/24/18 16:56 ED Review of Systems ROS: Stated complaint: GOUT Other details as noted in HPI Comment: All other systems reviewed and negative Constitutional: denies: chills, fever Eyes: denies: eye pain, eye discharge, vision change ENT: denies: ear pain, throat pain, dental pain, hearing loss, epistaxis, congestion Respiratory: denies: cough, shortness of breath, wheezing Cardiovascular: denies: chest pain, palpitations, dyspnea on exertion, edema, syncope, paroxysmal nocturnal dyspnea Gastrointestinal: denies: abdominal pain, nausea, vomiting, diarrhea, constipation, hematemesis, melena, hematochezia Genitourinary: denies: urgency, dysuria, frequency, hematuria, discharge, testicular pain, testicular mass Musculoskeletal: joint swelling, arthralgia Skin: denies: rash, lesions, change in color, change in hair/nails, pruritus Neurological: denies: headache, weakness, numbness, paresthesias, confusion, abnormal gait, vertigo Psychiatric: denies: anxiety, depression, auditory hallucinations, visual hallucinations, homicidal thoughts, suicidal thoughts Hematological/Lymphatic: denies: easy bleeding, easy bruising, swollen glands ED Past Medical Hx - Past Medical History Hx Hypertension: Yes Additional medical history: gout - Social History Smoking Status: Never Smoker Substance Use Type: Prescribed - Medications Home Medications: Home Medications Medication Instructions Recorded Confirmed Last Taken Type Lisinopril [Zestril] 40 mg PO DAILY 01/31/17 01/31/17 1 Day Ago History ~01/30/17 amLODIPine [Norvasc] 10 mg PO DAILY 01/31/17 01/31/17 1 Day Ago History ~01/30/17 Colchicine 0.6 mg PO BID #30 capsule 12/28/20 Unknown Rx Acetaminophen/Codeine [Tylenol 1 tab PO Q6H PRN #12 tab 09/17/21 Unknown Rx /Codeine # 3 tab] methylPREDNISolone [Medrol 4MG 4 mg PO DAILY #1 09/17/21 Unknown Rx DOSEPAK (21 tabs)] ED Physical Exam - General Limitations: No Limitations General appearance: alert, in no apparent distress, obese - Respiratory Respiratory exam: Present: normal lung sounds bilaterally. Absent: respiratory distress, wheezes, rales, rhonchi - Cardiovascular Cardiovascular Exam: Present: regular rate, normal rhythm, normal heart sounds - GI/Abdominal GI/Abdominal exam: Present: soft. Absent: distended, tenderness, guarding, rebound - Extremities Exam Extremities exam: Present: full ROM, tenderness, normal capillary refill, joint swelling (Mild, bilateral ankles but no erythema bruising or deformity), other (Tenderness to palpation mainly to the M T P joint of both feet including the medial aspect of both ankle. There is slight erythema around the M TP joints. Mild swelling to the ankle but no erythema. Range of motion of the toes and ankle is painful but normal.) - Neurological Exam Neurological exam: Present: alert, oriented X3, normal gait, reflexes normal, other ( Neurovascular intact bilateral lower extremity). Absent: motor sensory deficit - Psychiatric Psychiatric exam: Present: normal affect, normal mood - Skin Skin exam: Present: intact ED Course Vital Signs 09/17/21 18:30 Temperature 97.4 F L Pulse Rate 60 Respiratory 19 Rate Blood Pressure 155/76 O2 Sat by Pulse 97 Oximetry ED Medical Decision Making - Medical Decision Making Patient history and exam concerning for gouty arthritis. His abdomen is soft and nontender. He has no vomiting, diarrhea or UTI symptoms. He has no back pain, chest pain or shortness of breath. He has no calf tenderness or leg swelling. No evidence of a septic joint. No evidence of acute arterial occlusion or cellulitis. He is not toxic or ill-appearing. He is not in any significant distress. He is neurologically intact. His vital signs are stable. Suspect that his abdominal cramps and nausea is likely related to medication side effect from him taking acculturation 2 tablets twice a day when he was was to be taking it just 1 twice a day. Patient will be given Medrol Dosepak, given medication to help his pain and he was instructed to only take the colchicine twice a day. Recommend that he continue to follow-up with his PCP. Patient expressed understanding for instructions and agree with plan. Patient was stable at time of discharge. Critical care attestation.: If time is entered above; I have spent that time in minutes in the direct care of this critically ill patient, excluding procedure time. ED Disposition Clinical Impression: Gouty arthritis, Medication side effect Disposition: HOME / SELF CARE / HOMELESS Is pt being admited?: No Does the pt Need Aspirin: No Condition: Stable Instructions: Low-Purine Eating Plan Additional Instructions: It is important that you take the colchicine only twice a day as directed. With you increasing it to 2 tablets twice a day is likely the cause of your GI upset. Take the Medrol Dosepak as prescribed and the Tylenol threes as prescribed to help with pain and inflammation from your gouty arthritis. Elevate your legs as often as possible. Continue to follow-up with your primary care doctor next we ek. Return to the ER if your symptoms worsens or changes in any way. Prescriptions: methylPREDNISolone [Medrol 4MG DOSEPAK (21 tabs)] 4 mg PO DAILY #1 Acetaminophen/Codeine [Tylenol /Codeine # 3 tab] 1 tab PO Q6H PRN #12 tab PRN Reason: Pain , Severe (7-10) Referrals: PRIMARY CARE, [Referring] - 3-5 Days Time of Disposition: 19:45
[2021-09-17] MEDS ORDERED: ACETAMINOPHEN W/CODEINE 300-30 MG TAB PO ONE (19:45)
[2021-09-17] MEDS ORDERED: DEXAMETHASONE 4 MG TAB PO ONE (19:45)
[2021-09-17 21:09] VITALS: BP 130/69
== END 2021-09-17 20:45 | disposition home or self-care (01) ==
LOC: ED 16:11
DX: M10.9 Gout, unspecified (principal); T50.4X5A Adverse effect of drugs affecting uric acid metabolism, initial encounter; I10 Essential (primary) hypertension; Z79.899 Other long term (current) drug therapy; Y92.89 Other specified places as the place of occurrence of the external cause
CPT/HCPCS: 99282; J8540

== ENCOUNTER 2022-05-07 16:29 | Emergency (ER) | payer MEDICARE, OTHER ==
[2022-05-07 16:52] VITALS: BP 131/73
[2022-05-07] MEDS ORDERED: predniSONE 50 MG TAB PO ONE (17:00)
--- NOTE | 2022-05-07 17:01 | Emergency Department Report ---
ED General Adult HPI - General Chief complaint: Extremity Problem,Nontraumatic Stated complaint: GOUT Time Seen by Provider: 05/07/22 16:58 Source: patient Mode of arrival: Ambulatory Limitations: No Limitations - History of Present Illness Initial comments: 66-year-old male reports to the ER with gout pain to left ankle for about 5 days. Patient reported he has ran out of his gout medication and is here for medication refills as well as Pain relief until he is able to follow his primary care provider for further medication refills.. Patient reports no acute symptoms at this time. Severity scale (0 -10): 10 - Related Data Home Medications Medication Instructions Recorded Confirmed Last Taken Lisinopril [Zestril] 40 mg PO DAILY 01/31/17 01/31/17 1 Day Ago ~01/30/17 amLODIPine [Norvasc] 10 mg PO DAILY 01/31/17 01/31/17 1 Day Ago ~01/30/17 Previous Rx's Medication Instructions Recorded Last Taken Type Colchicine 0.6 mg PO BID #30 capsule 12/28/20 Unknown Rx Acetaminophen/Codeine [Tylenol 1 tab PO Q6H PRN #12 tab 09/17/21 Unknown Rx /Codeine # 3 tab] methylPREDNISolone [Medrol 4MG 4 mg PO DAILY #1 09/17/21 Unknown Rx DOSEPAK (21 tabs)] Colchicine [Colcrys] 0.6 mg PO BID 30 Days #60 tab 05/07/22 Unknown Rx Naproxen 375 mg PO BID PRN 7 Days #14 tab 05/07/22 Unknown Rx methylPREDNISolone [Medrol 4MG 4 mg PO DAILY #1 pack 05/07/22 Unknown Rx DOSEPAK (21 tabs)] Allergies Allergy/AdvReac Type Severity Reaction Status Date / Time No Known Allergies Allergy Verified 11/24/18 16:56 ED Review of Systems ROS: Stated complaint: GOUT Other details as noted in HPI Comment: All other systems reviewed and negative Musculoskeletal: joint swelling (Left ankle) ED Past Medical Hx - Past Medical History Previous Medical History?: Yes Hx Hypertension: Yes Additional medical history: gout - Surgical History Past Surgical History?: No - Social History Smoking Status: Never Smoker Substance Use Type: Prescribed - Medications Home Medications: Home Medications Medication Instructions Recorded Confirmed Last Taken Type Lisinopril [Zestril] 40 mg PO DAILY 01/31/17 01/31/17 1 Day Ago History ~01/30/17 amLODIPine [Norvasc] 10 mg PO DAILY 01/31/17 01/31/17 1 Day Ago History ~01/30/17 Colchicine 0.6 mg PO BID #30 capsule 12/28/20 Unknown Rx Acetaminophen/Codeine [Tylenol 1 tab PO Q6H PRN #12 tab 09/17/21 Unknown Rx /Codeine # 3 tab] methylPREDNISolone [Medrol 4MG 4 mg PO DAILY #1 09/17/21 Unknown Rx DOSEPAK (21 tabs)] Colchicine [Colcrys] 0.6 mg PO BID 30 Days #60 tab 05/07/22 Unknown Rx Naproxen 375 mg PO BID PRN 7 Days #14 tab 05/07/22 Unknown Rx methylPREDNISolone [Medrol 4MG 4 mg PO DAILY #1 pack 05/07/22 Unknown Rx DOSEPAK (21 tabs)] ED Physical Exam - General Limitations: No Limitations General appearance: alert, in no apparent distress - Head Head exam: Present: atraumatic, normocephalic - Eye Eye exam: Present: normal appearance - ENT ENT exam: Present: mucous membranes moist - Neck Neck exam: Present: normal inspection - Respiratory Respiratory exam: Present: normal lung sounds bilaterally. Absent: respiratory distress - Cardiovascular Cardiovascular Exam: Present: regular rate, normal rhythm. Absent: systolic murmur, diastolic murmur, rubs, gallop - GI/Abdominal GI/Abdominal exam: Present: soft, normal bowel sounds - Rectal Rectal exam: Present: deferred - Extremities Exam Extremities exam: Present: normal inspection - Expanded Lower Extremity Exam Left Ankle exam: Present: tenderness, swelling. Absent: full ROM, ecchymosis, deformity, dislocation, erythema - Back Exam Back exam: Present: normal inspection - Neurological Exam Neurological exam: Present: alert, oriented X3 - Psychiatric Psychiatric exam: Present: normal affect, normal mood - Skin Skin exam: Present: warm, dry, intact, normal color. Absent: rash ED Course Vital Signs 05/07/22 16:43 Temperature 98.3 F Pulse Rate 70 Respiratory 16 Rate Blood Pressure 131/73 [Left] O2 Sat by Pulse 98 Oximetry ED Medical Decision Making - Medical Decision Making 66-year-old male with a history of gout reports to the ER with left ankle gout pain. And medication refill. On physical exam patient has left ankle swelling with tenderness. Colchicine, prednisone, naproxen already here in ER. Patient requesting medication refill of his colchicine 0.6 mg twice daily. Got medication ordered here in ER. Patient given medication refill for his colchicine 0.6 mg twice a day for 30 days until patient is able to see his primary care provider Patient agrees with plan of care and verbalized understanding. No further work-up is needed at this time. Patient is stable for discharge. Patient informed if symptoms are to get worse to report back to the ER. Vital Signs 05/07/22 16:43 Temperature 98.3 F Pulse Rate 70 Respiratory 16 Rate Blood Pressure 131/73 [Left] O2 Sat by Pulse 98 Oximetry Critical care attestation.: If time is entered above; I have spent that time in minutes in the direct care of this critically ill patient, excluding procedure time. ED Disposition Clinical Impression: Gout of left ankle Qualifiers: Gout etiology: unspecified cause Chronicity: acute Qualified Code(s): M10.9 - Gout, unspecified Disposition: 01 HOME / SELF CARE / HOMELESS Is pt being admited?: No Condition: Stable Instructions: Low-Purine Eating Plan Prescriptions: Colchicine [Colcrys] 0.6 mg PO BID 30 Days #60 tab methylPREDNISolone [Medrol 4MG DOSEPAK (21 tabs)] 4 mg PO DAILY #1 pack Naproxen 375 mg PO BID PRN 7 Days #14 tab PRN Reason: Pain , Severe (7-10)
[2022-05-07] MEDS ORDERED: COLCHICINE 0.6 MG TAB PO ONE (17:03)
[2022-05-07] MEDS ORDERED: NAPROXEN 500 MG TAB PO ONE (18:00)
== END 2022-05-07 18:15 | disposition home or self-care (01) ==
LOC: ED 16:29
DX: M10.072 Idiopathic gout, left ankle and foot (principal)
CPT/HCPCS: 99282; J7512